=== PATIENT | female | born 1980 | race Caucasian/White ===

== ENCOUNTER 2019-01-04 20:43 | Emergency (ER) | payer BC ==
[~2019-01-04] VITALS: Ht 170.2 cm; Wt 61.2 kg
--- NOTE | 2019-01-04 21:20 | NUR ---
BIB SELF WITH FAMILY FROM HOME. AAOX4. NAD. NO SOB, BREATHING EVEN AND UNLABORED. AMBULATORY WITH LIMP. CAME IN FOR S/P FALL AFTER STANDING UP FAST. DEBIES BLACKING OUT PRIOR AND POST FALL. DENIES OF HITTING HER HEAD. C/O L HAND PAIN, R THIGHT PAIN, R SHOULDER PAIN AND R RIB AREA MPAIN WHICH PT RATES 10/10 SHARP. ROM INTACT RUE AND RLE. AWAITING MD FOR EVAL.
--- NOTE | 2019-01-04 21:28 | NUR ---
PT SIGNED WAIVER
[2019-01-04] MEDS ORDERED: NAPROXEN 500 MG TABLET PO ONE (22:00)
--- NOTE | 2019-01-04 22:01 | NUR ---
XRAY AT BEDSIDE
[2019-01-04] MEDS ORDERED: NAPROXEN 250 MG TABLET ONE (22:04)
--- NOTE | 2019-01-04 23:40 | NUR ---
Patient discharged to home in stable condition. Written and verbal after care instructions given. Patient verbalizes understanding of instruction. PT REC'D A COPY OF THE IMAGING FINDINGS. PT AMBULATED OUT WITH A SLIGHT LIMP. PT'S IS DRIVING THE PT HOME. VSS. NAD NOTED.
[2019-01-04 23:44] VITALS: BP 128/82
== END 2019-01-04 23:44 | disposition home or self-care (01) ==
LOC: ER 20:50
DX: S60.211A Contusion of right wrist, initial encounter (principal); S70.11XA Contusion of right thigh, initial encounter; S20.211A Contusion of right front wall of thorax, initial encounter; D50.9 Iron deficiency anemia, unspecified; W10.8XXA Fall (on) (from) other stairs and steps, initial encounter; Y93.89 Activity, other specified; Y92.89 Other specified places as the place of occurrence of the external cause; Y99.8 Other external cause status
CPT/HCPCS: 71100-TC; 73110; 73130-TC; 73552

== ENCOUNTER 2019-04-14 11:14 | Outpatient (CLI) | payer BC | END 2019-04-14 23:59 | disposition home or self-care (01) | LOC: CARD 11:14 | PROVIDERS: ATTEND Internal Medicine Interventional Cardiology | DX: R00.2 Palpitations (principal); I10 Essential (primary) hypertension; R07.9 Chest pain, unspecified | CPT/HCPCS: 93307-TC ==

== ENCOUNTER 2019-07-08 09:18 | Outpatient (CLI) | payer BC | END 2019-07-08 23:59 | disposition home or self-care (01) | LOC: US 09:18 | PROVIDERS: ATTEND Family Medicine | DX: R10.9 Unspecified abdominal pain (principal) | CPT/HCPCS: 76700-TC ==

== ENCOUNTER 2019-10-10 11:06 | Emergency (ER) | payer BC ==
[~2019-10-10] VITALS: Ht 167.6 cm; Wt 54.4 kg
[2019-10-10 11:17] VITALS: BP 112/81
--- NOTE | 2019-10-10 11:18 | NUR ---
rayna, c/o left eye swelling x 2 days, pain 2/10 ps, pt to bed 3, -sob, aaox4, pending md barahona
== END 2019-10-10 12:45 | disposition home or self-care (01) ==
LOC: ER 11:14
DX: L03.213 Periorbital cellulitis (principal); D50.9 Iron deficiency anemia, unspecified

== ENCOUNTER 2021-03-16 11:36 | Outpatient (CLI) | payer BC | END 2021-03-16 23:59 | disposition home or self-care (01) | LOC: LAB 11:36 | PROVIDERS: ATTEND Family Medicine | DX: Z75.3 Unavailability and inaccessibility of health-care facilities (principal) ==

== ENCOUNTER 2021-03-19 10:10 | Outpatient (CLI) | payer BC | END 2021-03-19 23:59 | disposition home or self-care (01) | LOC: US 10:10 | PROVIDERS: ATTEND Family Medicine | DX: N88.8 Other specified noninflammatory disorders of cervix uteri (principal); R93.89 Abnormal findings on diagnostic imaging of other specified body structures | CPT/HCPCS: 76856-TC ==